=== PATIENT | male | born 1970 | race Caucasian/White ===

== ENCOUNTER 2023-07-21 22:11 | Emergency (ER) | payer MEDICAID ==
[~2023-07-21] VITALS: Ht 170.2 cm; Wt 61.5 kg
[2023-07-21 22:23] VITALS: BP 145/76; RESP 16; O2SAT 96
[2023-07-21 22:32] VITALS: PULSE 127
[2023-07-21 22:41] LABS: Basophils # (auto) 0 10 ^3/uL (0-0.2); Basophils % (auto) 0.3 % (0.0-2.0); Eosinophils # (auto) 0.5 10 ^3/uL (0-0.8); Eosinophils % (auto) 3.5 % (0.0-7.0); Hemoglobin 16.5 g/dL (13.5-17.5); Lymphocytes # (auto) 1.8 10 ^3/uL (0.4-5.4); Lymphocytes % (auto) 12.8 % (10.0-50.0); Mean Corpuscular Hemoglobin 31.2 pg (28.0-32.0); Mean Corpuscular Hgb Conc. 33.7 g/dL (32.0-36.0); Mean Corpuscular Volume 92.7 fL (80.0-100.0); Monocytes # (auto) 0.9 10 ^3/uL (0-1.3); Monocytes % (auto) 6.2 % (0.0-12.0); Neutrophils # (auto) 10.8 10 ^3/uL (1.6-8.6); Neutrophils % (auto) 77.2 % (37.0-80.0); Red Blood Cells 5.29 10^6/uL (4.5-5.90)
[2023-07-21 22:47] LABS: Chloride 105 mmol/L (98-107); Potassium 3.9 mmol/L (3.5-5.1); Sodium 138 mmol/L (136-145)
[2023-07-21 22:48] LABS: Anion Gap 7 (5-15); Carbon Dioxide 26 mmol/L (20-30)
[2023-07-21 22:49] LABS: Calcium 9.7 mg/dL (8.5-10.1)
[2023-07-21 22:53] LABS: Glucose 125 mg/dL (74-106)
[2023-07-21 22:54] LABS: BUN/Creatinine Ratio 11.3 (10.0-20.0); Blood Urea Nitrogen 12 mg/dL (9-23)
[2023-07-21] MEDS: CLINDAMYCIN 600MG IV 50 ML IV ONE (23:37)
[2023-07-21] MEDS: SODIUM CHLORIDE 0.9% 1,000 ML IVB ONE (23:37)
[2023-07-22] MEDS: SODIUM CHLORIDE 0.9% 1,000 ML IV ONE (00:01)
[2023-07-22] MEDS ORDERED: CLIN150C PO (00:26)
== END 2023-07-22 00:36 | disposition left against medical advice (07) ==
LOC: ER 22:11
DX: R00.2 Palpitations (principal); F15.10 Other stimulant abuse, uncomplicated; L03.012 Cellulitis of left finger; F17.210 Nicotine dependence, cigarettes, uncomplicated; Z79.2 Long term (current) use of antibiotics
CPT/HCPCS: 36415; 80048; 84484; 85025; 93005; 96365; 99284; J3490; J7030